=== PATIENT | female | born 1995 | race Two or more races ===

== ENCOUNTER 2019-05-18 15:10 | Emergency (ER) | payer MEDICAID ==
[~2019-05-18] VITALS: Ht 157.5 cm; Wt 49.4 kg
[2019-05-18] MEDS ORDERED: NKM (15:20)
[2019-05-18 15:31] VITALS: BP 121/81
--- NOTE | 2019-05-18 16:03 | Emergency Room Report ---
History of Present Illness General Chief Complaint: Skin Rash/Abscess Source: Patient Present Illness HPI 23 YO Female presents to the ED c/o rash on face x 3 weeks, very dry flaky. Denies taking any medications. In the past pt. was given steriod cream, [place] and hasn't established a PCP or Fund Raiser. Pt. denies fevers, chills or swollen tender lymph nodes. Denies lesions/rashes elsewhere on the body. Denies new medications or body washes or creams. Denies swelling of the lips, tongue , throat or airway. Denies wheezing, or shortness of breath. Denies recent travel, recent illness or ill contacts. denies blisters , oral lesions, or sloughing of the skin. Denies pain. Pt. reports similar appearance in the past. Allergies: Coded Allergies: No Known Allergies (Unverified , 05/18/19) Patient History Past Medical History: see triage record Past Surgical History: unable to obtain Pertinent Family History: none Last Menstrual Period: Apr, 2019 Now: No Reviewed Nursing Documentation: PMH: Agreed; PSxH: Agreed Nursing Documentation-PMH Past Medical History: No Stated History Review of Systems All Other Systems: negative except mentioned in HPI Physical Exam Vital Signs Date Time Temp Pulse Resp B/P (MAP) Pulse Ox O2 Delivery O2 Flow Rate FiO2 05/18/19 15:17 98.8 86 17 121/81 (94) 96 Room Air Sp02 EP Interpretation: reviewed, normal General Appearance: no apparent distress, alert, GCS 15, non-toxic Head: normocephalic, atraumatic Eyes: bilateral eye normal inspection, bilateral eye PERRL ENT: hearing grossly normal, normal pharynx, no angioedema, normal voice, other - Try confluent plaques noted periorally as well as across the forehead, chin and down the neck and on the lower portion of the ears bilaterally. There are no blisters or vesicles, discharge, crusting or warmth. Negative Niklosky sign Neck: full range of motion, other - rash Respiratory: chest non-tender, lungs clear, normal breath sounds, no respiratory distress, no wheezing, speaking full sentences, other - no stridor Cardiovascular #1: regular rate, rhythm Musculoskeletal: gait/station normal, normal range of motion, non-tender Neurologic: alert, oriented x3, responsive, motor strength/tone normal, sensory intact, normal gait, speech normal, grossly normal Psychiatric: judgement/insight normal Skin: rash - Try confluent plaques noted periorally as well as across the forehead, chin and down the neck and on the lower portion of the ears bilaterally. There are no blisters or vesicles, discharge, crusting or warmth. Negative Niklosky sign Lymphatic: no adenopathy Medical Decision Making PA Attestation Dr. Gomez is my supervising Physician whom patient management has been discussed with. Diagnostic Impression: Primary Impression: Rash and other nonspecific skin eruption ER Course 23 YO Female presents to the ED c/o rash on face x 3 weeks, very dry flaky. Denies taking any medications. In the past pt. was given steriod cream, [place] and hasn't established a PCP or Fund Raiser. Pt. denies fevers, chills or swollen tender lymph nodes. Denies lesions/rashes elsewhere on the body. Denies new medications or body washes or creams. Denies swelling of the lips, tongue , throat or airway. Denies wheezing, or shortness of breath. Denies recent travel, recent illness or ill contacts. denies blisters , oral lesions, or sloughing of the skin. Denies pain. Pt. reports similar appearance in the past. Ddx considered but are not limited to cellulitis, scabies, shingles, varicella, dermatitis, urticaria, eczema, tinea, viral exanthem, SJS Vital signs: are WNL, pt. is afebrile H&PE are most consistent with facial rash. --This patient is nontoxic in appearance and in no acute distress. No evidence to suggest acute impending airway compromise or anaphylaxis. ORDERS: none required at this time, the diagnosis is clinical ED INTERVENTIONS: None required at this time. DISCHARGE: At this time pt. is stable for d/c to home. Will provide printed patient care instructions, and any necessary prescriptions. Care plan and follow up instructions have been discussed with the patient prior to discharge. Last Vital Signs Date Time Temp Pulse Resp B/P (MAP) Pulse Ox O2 Delivery O2 Flow Rate FiO2 05/18/19 15:31 98.8 72 17 121/81 96 Room Air Disposition: HOME, SELF-CARE Condition: Stable Scripts Triamcinolone Acetonide (Triamcinolone Acetonide 0.1% Oint*) 15 Gm Oint...g. 1 APPLIC TP NEEDED for 1 Day, #15 GM Prov: Estelle Vo 05/18/19 Prednisone (Prednisone) 20 Mg Tablet 20 MG PO DAILY for 1 Day, #1 TAB Prov: Estelle Vo 05/18/19 Patient Instructions: Rash Additional Instructions: Take medications as directed. Follow up with a Primary Care Provider in 3-5 days for DERMATOLOGY REFERRAL , even if your symptoms have resolved. --Please review list of primary care clinics, if you do not already have a primary care provider Return sooner to ED if new symptoms occur, or current symptoms become worse. - Please note that this Emergency Department Report was dictated using [employer] technology software, occasionally this can lead to erroneous entry secondary to interpretation by the dictation equipment. Estelle Vo May 18, 2019 16:03
[2019-05-18] MEDS ORDERED: PREDNISONE20 M1 PO (16:04)
[2019-05-18] MEDS ORDERED: TRIAMCINOLONE A15 G2 TP (16:04)
[2019-05-18 16:48] VITALS: BP 121/81
== END 2019-05-18 16:21 | disposition home or self-care (01) ==
LOC: EMR 16:20
DX: R21 Rash and other nonspecific skin eruption (principal)
CPT/HCPCS: J7512; Z7502; 99282